=== PATIENT | male | born 1965 | race Caucasian/White ===

== ENCOUNTER 2016-06-16 06:40 | Day surgery (SDC) | payer MEDICARE, MEDICAID ==
[2016-06-16] MEDS ORDERED: Lactated Ringers 1,000 ML IV SCH (06:45)
[2016-06-16] MEDS ORDERED: Propofol 200 MG/20 ML SDV IV ONE (08:00)
[2016-06-16] MEDS ORDERED: Lidocaine 2% 100 MG/5 ML Syringe IVPUSH ONE (08:00)
[2016-06-16] MEDS ORDERED: Midazolam 1 MG/ML 2 ML SDV IV ONE (08:00)
--- NOTE | 2016-06-16 08:23 | PCM.OPNOTE ---
- General Post-Op/Procedure Note Date of Surgery/Procedure: 06/16/16 Operative Procedure(s): c scope Findings: incomplete prep Pre Op Diagnosis: colon cancer screening Post-Op Diagnosis: Same Anesthesia Technique: MAC Primary Surgeon: Williams Merlos Anesthesia Provider: Ness Kendrick Complications: incomplete prep Condition: Good Free Text/Narrative:: see dictation
[2016-06-16 08:45] VITALS: BP 102/54
--- NOTE | 2016-06-16 11:25 | OR ---
DATE OF OPERATION: 06/16/2016 SURGEON: Wililams Merlos MD PROCEDURE PERFORMED: Colonoscopy. PREOPERATIVE DIAGNOSIS: Colon cancer screening. POSTOPERATIVE DIAGNOSIS: Incomplete prep. INDICATIONS FOR PROCEDURE: This is a 51-year-old white male, who is referred for screening colonoscopy. He was offered and accepted the same. DESCRIPTION OF OPERATION: After an excellent IV sedation was administered, digital rectal exam was performed. No marked abnormality was noted. The flexible colonoscope was inserted. The scope was carefully advanced up to about the distal transverse colon. On reaching the descending colon, we began to encounter liquid stool. This got progressively worse as we advanced the scope. It became readily apparent that we were not going to be able to get an adequate exam given the patient's current prep. The scope was withdrawn, and the air was aspirated. The patient will be rescheduled at a later date. /[id number] /MOONL
== END 2016-06-16 10:00 | disposition home or self-care (01) ==
LOC: FB.SDS 06:40
PROVIDERS: ATTEND Surgery
PROC: 0DJD8ZZ Inspection of Lower Intestinal Tract, Via Natural or Artificial Opening Endoscopic (ICD-10-PCS; principal; 2016-06-16)
DX: Z12.11 Encounter for screening for malignant neoplasm of colon (principal); E11.319 Type 2 diabetes mellitus with unspecified diabetic retinopathy without macular edema; E66.01 Morbid (severe) obesity due to excess calories; I10 Essential (primary) hypertension; Z72.0 Tobacco use
CPT/HCPCS: 00902; 45378; 82962; J2250; J2704; J7120

== ENCOUNTER 2016-06-17 08:33 | Day surgery (SDC) | payer MEDICARE, MEDICAID ==
[2016-06-17] MEDS ORDERED: Lactated Ringers 1,000 ML IV SCH (09:15)
[2016-06-17] MEDS ORDERED: Midazolam 1 MG/ML 2 ML SDV IV ONE (10:40)
[2016-06-17] MEDS ORDERED: Propofol 200 MG/20 ML SDV IV ONE (10:40)
[2016-06-17] MEDS ORDERED: Lidocaine 2% 100 MG/5 ML Syringe IVPUSH ONE (10:40)
--- NOTE | 2016-06-17 11:06 | PCM.OPNOTE ---
- General Post-Op/Procedure Note Date of Surgery/Procedure: 06/17/16 Operative Procedure(s): c scope Findings: normal colon Pre Op Diagnosis: colon cancer screening Post-Op Diagnosis: nl scope Anesthesia Technique: MAC Primary Surgeon: Williams Merlos Anesthesia Provider: Ness Kendrick Pathology: none Complications: None Condition: Good Free Text/Narrative:: see dictation
--- NOTE | 2016-06-17 12:14 | OR ---
DATE OF OPERATION: 06/17/2016 SURGEON: Williams Merlos MD PROCEDURE PERFORMED: Colonoscopy. PREOPERATIVE DIAGNOSIS: Need for screening colonoscope. POSTOPERATIVE DIAGNOSIS: Normal colon. INDICATIONS FOR PROCEDURE: This is a 51-year-old white male, presents for his initial screening C-scope. He was offered and accepted same. DESCRIPTION OF OPERATION: After an excellent IV sedation was administered, digital rectal exam was performed. No marked abnormality was noted. The flexible colonoscope was inserted and advanced to the cecum without difficulty. The following findings were noted: Ascending colon, unremarkable. Transverse colon, unremarkable. Descending colon, unremarkable. Sigmoid and rectum unremarkable. Colon was deflated as the scope was removed. The patient tolerated the procedure well and was taken to recovery room in good condition. /[id number] SHAHAB/HAYLIE
[2016-06-17 12:50] VITALS: BP 164/87
== END 2016-06-17 12:19 | disposition home or self-care (01) ==
LOC: FB.SDS 08:33
PROVIDERS: ATTEND Surgery
PROC: 0DJD8ZZ Inspection of Lower Intestinal Tract, Via Natural or Artificial Opening Endoscopic (ICD-10-PCS; principal; 2016-06-17)
DX: Z12.11 Encounter for screening for malignant neoplasm of colon (principal); E11.3293 Type 2 diabetes mellitus with mild nonproliferative diabetic retinopathy without macular edema, bilateral; I10 Essential (primary) hypertension; F17.200 Nicotine dependence, unspecified, uncomplicated; Z89.519 Acquired absence of unspecified leg below knee
CPT/HCPCS: 00902; 45378; J7120; 82962; J2250; J2704

== ENCOUNTER 2018-11-16 23:10 | Observation (INO) | payer MEDICARE, MEDICAID ==
[2018-11-16] MEDS ORDERED: Sodium Chloride 0.9% 10 ML Syringe FLUSH PRN (23:58)
--- NOTE | 2018-11-17 00:07 | EDM.PDOC ---
ED HPI GENERAL MEDICAL PROBLEM - General Chief Complaint: General Stated Complaint: LIGHTHEADED, DIZZY Time Seen by Provider: 11/16/18 23:40 Source of Information: Reports: Patient, EMS, EMS Notes Reviewed History Limitations: Reports: No Limitations - History of Present Illness INITIAL COMMENTS - FREE TEXT/NARRATIVE: Saúl comes into [facility] ED by EMS with sxs of dizziness i.e. lt headiness, weakness, dyspnea and malaise. EMS personnel reported BPs 80's/40's with VR 990- 100's. He had dialysis at [facility] on Thursday and felt fine when homebound. He reportedly mowed the lawn without difficulty, in spite of R BKA. This afternoon, sxs developed and seems to have progressed. He denies chest pain, but does feel SOB which improves with sitting up. A phone call from the Dialysis Center today noted Hgb 6.1 gm %, compared to 7.4 gm % last week at PCP office. He does not endorse any hemetemesis, hematuria or hematochezia. He is normotensive on admission to the ED, Hgb 6.1 gms % unchanged. He will be admitted to Observation for transfusions tonight. - Related Data Allergies Allergy/AdvReac Type Severity Reaction Status Date / Time amoxicillin [From Augmentin] Allergy Rash Verified 11/16/18 23:34 clavulanic acid Allergy Rash Verified 11/16/18 23:34 [From Augmentin] Sulfa (Sulfonamide Allergy Rash Verified 11/16/18 23:34 Antibiotics) Home Meds: Home Meds Albuterol Sulfate [Proair Hfa] 1 - 2 puff IH Q6H 06/13/16 [History] Ascorbate Calcium [Vitamin C] 500 mg PO DAILY 06/13/16 [History] Budesonide/Formoterol Fumarate [Symbicort 160-4.5 Mcg Inhaler] 2 puff IH BID PRN 06/13/16 [History] Carbidopa/Levodopa [Carbidopa-Levodopa 25-250] 1 each PO BEDTIME PRN 06/13/16 [ History] Carvedilol [Coreg] 6.25 mg PO Q12H 06/13/16 [History] Cyanocobalamin (Vitamin B-12) [Vitamin B-12] 250 mcg PO DAILY 06/13/16 [History] Ergocalciferol (Vitamin D2) [Vitamin D] 1,000 unit PO BID 06/13/16 [History] Ferrous Sulfate 324 mg PO TID 06/13/16 [History] Furosemide [Lasix] 40 mg PO BID 06/13/16 [History] Insulin Glarg,Human.Rec.Analog [Lantus Solostar] 20 unit SQ BID 06/13/16 [ History] Multivitamin with Minerals [Multiple Vitamin] 1 tab PO DAILY 06/13/16 [History] Pumpkin Seed Oil/Saw Sumerco [Saw Sumerco 160 mg Softgel] 160 mg PO BID [History] amLODIPine [Norvasc] 5 mg PO DAILY 06/13/16 [History] metFORMIN [Glucophage] 1,000 mg PO BIDMEALS 06/13/16 [History] Past Medical History HEENT History: Reports: Cataract, Other (See Below) Other HEENT History: DIABETIC RETINOPATHY, BOTH EYES;. DIABETIC OPTIC PAPILLOPATHY Cardiovascular History: Reports: Hypertension, Other (See Below) Other Cardiovascular History: EDEMA Respiratory History: Reports: Asthma, COPD Genitourinary History: Reports: Acute Renal Failure PHONE TECHNICIAN History: Reports: None Musculoskeletal History: Reports: Amputation, Other (See Below) Other Musculoskeletal History: OSTEOMYELITIS, RIGHT LEG Neurological History: Reports: Neuropathy, Diabetic, Other (See Below) Other Neuro History: RESTLESS LEG SYNDROME Psychiatric History: Reports: Anxiety, Depression Endocrine/Metabolic History: Reports: Diabetes, Type II, Obesity/BMI 30+, Vitamin D Deficiency Hematologic History: Reports: Anemia, Blood Transfusion(s), Other (See Below) Other Hematologic History: THROMBOCYTOPENIA Dermatologic History: Reports: Other (See Below) Other Dermatologic History: HX ULCER - Infectious Disease History Infectious Disease History: Reports: Chicken Pox - Past Surgical History GI Surgical History: Reports: Colonoscopy Musculoskeletal Surgical History: Reports: Amputation Social & Family History - Caffeine Use Caffeine Use: Reports: Soda ED ROS GENERAL - Review of Systems Review Of Systems: See Below Constitutional: Reports: Malaise, Weakness, Fatigue, Decreased Appetite, Weight Loss HEENT: Reports: No Symptoms Respiratory: Reports: Shortness of Breath Cardiovascular: Reports: Lightheadedness, Orthopnea Endocrine: Reports: Fatigue GI/Abdominal: Reports: No Symptoms : Reports: No Symptoms Musculoskeletal: Reports: No Symptoms Skin: Reports: No Symptoms Neurological: Reports: Dizziness, Pre-Existing Deficit, Weakness Psychiatric: Reports: No Symptoms Hematologic/Lymphatic: Reports: Anemia Immunologic: Reports: No Symptoms ED EXAM, GENERAL - Physical Exam Exam: See Below Exam Limited By: No Limitations General Appearance: Alert, WD/WN, Anxious, Mild Distress, Obese Eye Exam: Bilateral Eye: EOMI, Normal Inspection, PERRL Ears: Normal External Exam Nose: Normal Inspection Throat/Mouth: Normal Inspection, Normal Lips, Normal Oropharynx, Normal Voice, No Airway Compromise Head: Normocephalic Neck: Normal Inspection, Supple, Non-Tender Respiratory/Chest: Lungs Clear, Chest Non-Tender, Prolonged Expiration Cardiovascular: Regular Rate, Rhythm, Other (edema L foot) GI/Abdominal: Normal Bowel Sounds, Soft, Non-Tender, No Organomegaly, No Distention, No Mass (Male) Exam: Deferred Rectal (Males) Exam: Deferred Back Exam: Normal Inspection Extremities: Other (R BKA; ) Neurological: Alert, Oriented, Normal Cognition, Sensory/Motor Deficit Psychiatric: Normal Affect, Anxious Skin Exam: Warm, Dry, Other (neurotrophic ulceration L foot; minor ulceration L buttock) Lymphatic: No Adenopathy Course - Vital Signs Text/Narrative:: Follow up Hgb 6.1 gm %, and he will be admitted to Observation for blood transfusions tonight. Hospitalist to see in the am. Last Recorded V/S: Last Vital Signs Temp 36.6 C 11/16/18 23:10 Pulse 106 H 11/16/18 23:10 Resp 18 11/16/18 23:10 BP 133/73 11/16/18 23:10 Pulse Ox 98 11/16/18 23:10 - Orders/Labs/Meds Orders: Active Orders 24 hr Category Date Time Status Patient Status Manage Transfer [TRANSFER] Routine ADT 11/17/18 01:16 Active Patient Status [ADT] Routine ADT 11/17/18 01:19 Active Bedrest Bedside Commode [RC] ASDIRECTED Care 11/17/18 01:19 Active Blood Glucose Check, Bedside [RC] TIDMEALS Care 11/17/18 01:19 Active EKG Documentation Completion [RC] ASDIRECTED Care 11/17/18 00:07 Active Height and Weight [RC] DAILY Care 11/17/18 01:19 Active Intake and Output [RC] QSHIFT Care 11/17/18 01:21 Active Oxygen Therapy [RC] PRN Care 11/17/18 01:19 Active VTE/DVT Education [RC] Per Unit Routine Care 11/17/18 01:19 Active Vital Signs [RC] Q4H Care 11/17/18 01:19 Active Consistent Carbohydrate Diet [DIET] Diet 11/17/18 Breakfast Ordered RED BLOOD CELLS LP [BBK] Stat Lab 11/16/18 23:58 Received TROPONIN I [CHEM] Stat Lab 11/17/18 00:54 Received TYPE AND SCREEN [BBK] Stat Lab 11/16/18 23:58 Received Sodium Chloride 0.9% [Normal Saline] 1,000 ml Med 11/16/18 23:45 Active IV ASDIRECTED Sodium Chloride 0.9% [Normal Saline] 250 ml Med 11/16/18 23:45 Active IV ASDIRECTED Sodium Chloride 0.9% [Saline Flush] Med 11/16/18 23:58 Active 10 ml FLUSH ASDIRECTED PRN Peripheral IV Insertion Adult [OM.PC] Routine Oth 11/16/18 23:58 Ordered Transfuse Red Blood Cells [COMM] Urgent Oth 11/16/18 23:58 Ordered Resuscitation Status Routine Resus Stat 11/17/18 01:19 Ordered EKG 12 Lead [EK] Routine Ther 11/17/18 00:07 Ordered Medication Orders Sodium Chloride (Normal Saline) 1,000 mls @ 400 mls/hr IV ASDIRECTED MEGHANA Stop: 11/18/18 02:14 Sodium Chloride (Normal Saline) 250 mls @ 100 mls/hr IV ASDIRECTED MEGHANA Sodium Chloride (Saline Flush) 10 ml FLUSH ASDIRECTED PRN PRN Reason: Keep Vein Open Labs: Laboratory Tests 11/17/18 11/17/18 Range/Units 00:54 00:54 WBC 12.1 H (4.5-12.0) X10-3/uL RBC 2.50 L (4.30-5.75) x10(6)uL Hgb 6.1 L* (13.5-17.8) g/dL Hct 18.8 L* D (30.0-51.3) % MCV 75.1 L (80-96) fL MCH 24.6 L (27.7-33.6) pg MCHC 32.7 (32.2-35.4) g/dL RDW 21.9 H (11.5-15.5) % Plt Count 257 (125-369) X10(3)uL MPV 7.3 L (7.4-10.4) fL Neut % (Auto) 72.0 (46-82) % Lymph % (Auto) 18.4 (13-37) % Carter % (Auto) 8.5 (4-12) % Eos % (Auto) 1 (1.0-5.0) % Baso % (Auto) 0 (0-2) % Neut # (Auto) 8.8 H (1.6-8.3) # Lymph # (Auto) 2.2 (0.6-5.0) # Carter # (Auto) 1.0 (0.0-1.3) # Eos # (Auto) 0.1 (0.0-0.8) # Baso # (Auto) 0.0 (0.0-0.2) # Sodium 136 (135-145) mmol/L Potassium 3.4 L (3.5-5.3) mmol/L Chloride 99 L (100-110) mmol/L Carbon Dioxide 30 (21-32) mmol/L BUN 17 (7-18) mg/dL Creatinine 3.7 H* (0.70-1.30) mg/dL Est Cr Clr Drug Dosing TNP Estimated GFR (MDRD) 17 L (>60) BUN/Creatinine Ratio 4.6 L (9-20) Glucose 172 H (80-116) mg/dL Calcium 8.4 L (8.6-10.2) mg/dL Total Bilirubin 0.6 (0.1-1.3) mg/dL AST 19 (5-25) IU/L ALT 7 L (12-36) U/L Alkaline Phosphatase 174 H (56-112) IU/L Total Protein 5.9 L (6.0-8.0) g/dL Albumin 2.1 L (3.5-5.2) g/dL Globulin 3.8 g/dL Albumin/Globulin Ratio 0.6 Meds: Medications Generic Name Dose Route Start Last Admin Trade Name Freq PRN Reason Stop Dose Admin Sodium Chloride 1,000 mls @ 400 mls/hr 11/16/18 23:45 Normal Saline IV 08/15/19 02:14 ASDIRECTED MEGHANA Sodium Chloride 250 mls @ 100 mls/hr 11/16/18 23:45 Normal Saline IV ASDIRECTED MEGHANA Sodium Chloride 10 ml 11/16/18 23:58 Saline Flush FLUSH ASDIRECTED PRN Keep Vein Open Departure - Departure Time of Disposition: 01:15 Disposition: Refer to Observation Condition: Poor Clinical Impression: Anemia associated with chronic renal failure - Discharge Information *PRESCRIPTION DRUG MONITORING PROGRAM REVIEWED*: Not Applicable *COPY OF PRESCRIPTION DRUG MONITORING REPORT IN PATIENT AVANI: Not Applicable Referrals: Bret Mccoy MD [Primary Care Provider] - Forms: ED Department Discharge - Problem List & Annotations (1) Anemia associated with chronic renal failure SNOMED Code(s): 52992418 Code(s): N18.9 - CHRONIC KIDNEY DISEASE, UNSPECIFIED; D63.1 - ANEMIA IN CHRONIC KIDNEY DISEASE Status: Acute Current Visit: Yes Annotation/Comment :: Admit to Observation and transfuse tonight. - Problem List Review Problem List Initiated/Reviewed/Updated: Yes - My Orders Last 24 Hours: My Active Orders 11/16/18 23:45 Sodium Chloride 0.9% [Normal Saline] 1,000 ml IV ASDIRECTED Sodium Chloride 0.9% [Normal Saline] 250 ml IV ASDIRECTED 11/16/18 23:58 RED BLOOD CELLS LP [BBK] Stat TYPE AND SCREEN [BBK] Stat Sodium Chloride 0.9% [Saline Flush] 10 ml FLUSH ASDIRECTED PRN Peripheral IV Insertion Adult [OM.PC] Routine Transfuse Red Blood Cells [COMM] Urgent 11/17/18 00:07 EKG Documentation Completion [RC] ASDIRECTED EKG 12 Lead [EK] Routine 11/17/18 00:54 TROPONIN I [CHEM] Stat 11/17/18 01:16 Patient Status Manage Transfer [TRANSFER] Routine 11/17/18 01:19 Patient Status [ADT] Routine Bedrest Bedside Commode [RC] ASDIRECTED Blood Glucose Check, Bedside [RC] TIDMEALS Height and Weight [RC] DAILY Oxygen Therapy [RC] PRN VTE/DVT Education [RC] Per Unit Routine Vital Signs [RC] Q4H Resuscitation Status Routine 11/17/18 01:21 Intake and Output [RC] QSHIFT 11/17/18 Breakfast Consistent Carbohydrate Diet [DIET] - Assessment/Plan Last 24 Hours: My Active Orders 11/16/18 23:45 Sodium Chloride 0.9% [Normal Saline] 1,000 ml IV ASDIRECTED Sodium Chloride 0.9% [Normal Saline] 250 ml IV ASDIRECTED 11/16/18 23:58 RED BLOOD CELLS LP [BBK] Stat TYPE AND SCREEN [BBK] Stat Sodium Chloride 0.9% [Saline Flush] 10 ml FLUSH ASDIRECTED PRN Peripheral IV Insertion Adult [OM.PC] Routine Transfuse Red Blood Cells [COMM] Urgent 11/17/18 00:07 EKG Documentation Completion [RC] ASDIRECTED EKG 12 Lead [EK] Routine 11/17/18 00:54 TROPONIN I [CHEM] Stat 11/17/18 01:16 Patient Status Manage Transfer [TRANSFER] Routine 11/17/18 01:19 Patient Status [ADT] Routine Bedrest Bedside Commode [RC] ASDIRECTED Blood Glucose Check, Bedside [RC] TIDMEALS Height and Weight [RC] DAILY Oxygen Therapy [RC] PRN VTE/DVT Education [RC] Per Unit Routine Vital Signs [RC] Q4H Resuscitation Status Routine 11/17/18 01:21 Intake and Output [RC] QSHIFT 11/17/18 Breakfast Consistent Carbohydrate Diet [DIET] Plan: Follow up with hospitalist in the am.
[2018-11-17] MEDS ORDERED: Albuterol 8 GM Inhaler INH PRN (01:50)
[2018-11-17] MEDS: Sodium Chloride 0.9% 1,000 ML IV SCH ×2 (02:33→09:33)
[2018-11-17] MEDS: Sodium Chloride 0.9% 250 ML IV SCH ×2 (03:10→05:19)
[2018-11-17] MEDS ORDERED: Heparin Sodium 10 Units/ML 5 ML Syringe FLUSH PRN (04:03)
[2018-11-17] MEDS ORDERED: Carbidopa/Levodopa 25-250 MG Tab PO ONE (04:46)
--- NOTE | 2018-11-17 08:28 | PCM.SN ---
- Free Text/Narrative Note: was called to ER to start IV for blood transfusion and to draw blood for lab.Nurses attemt to do so was unsucessful.Very ill appearring patient who is uncomfortable with SOB and weakness.No veins noted on left arm,attemptted small vein lower arm without success.Dialysis nurse from [facility] requested that we not use central line.Due to patients symptoms,with Dr Cavazos approval, did start 18 jelco in right antecubatal to draw blood and use in case of emergency.We than spoke to a dialysis nurse at [place] who reccommended using central line rather than right arm.
[2018-11-17] MEDS ORDERED: Non-Formulary Medication 1 Each (Budesonide/Formoterol Fumarate [Symbicort 160-4.5 Mcg Inh IH PRN (09:02)
[2018-11-17] MEDS ORDERED: INSULIN DEGLUDEC 30 UNIT SQ PRN (09:02)
[2018-11-17] MEDS ORDERED: Non-Formulary Medication 1 Each (Ferrous Sulfate [Ferrous Sulfate] 324 MG) PO SCH (09:15)
[2018-11-17] MEDS ORDERED: CYANOCOBALAMIN 250 MCG PO SCH (09:15)
--- NOTE | 2018-11-17 13:31 | PCM.DCSUM1 ---
Discharge Summary - Hospital Course HPI Initial Comments: Patient is a 53 yr old male who present to ER yesterday for dizziness, lightheadedness, weakness, dyspnea and malaise. EMS personnel reported BPs 80's/ 40's with HR 90-100's. He had dialysis at [facility] on Thursday and felt fine at that time. He mowed the lawn Thursday without difficulty , in spite of R BKA. His symptoms progressed yesterday afternoon. He denied chest pain, but felt SOB which improves with sitting up when seen in ER. He got a phone call from the Dialysis Center yesterday noted Hgb 6.1 gm %, compared to 7.4 gm % last week at PCP office. He denies hematemesis, hematuria or black or bloody stool. Hgb 6.1 in the ER. He was admitted to Observation for transfusions overnight. Diagnosis: Stroke: No - Discharge Data Discharge Date: 11/17/18 Discharge Disposition: Home, Self-Care 01 Condition: Stable - Discharge Diagnosis/Problem(s) (1) CKD (chronic kidney disease) stage V requiring chronic dialysis SNOMED Code(s): 100965088 ICD Code: N18.6 - END STAGE RENAL DISEASE; Z99.2 - DEPENDENCE ON RENAL DIALYSIS Status: Chronic Current Visit: Yes (2) Anemia associated with chronic renal failure SNOMED Code(s): 43863047 ICD Code: N18.9 - CHRONIC KIDNEY DISEASE, UNSPECIFIED; D63.1 - ANEMIA IN CHRONIC KIDNEY DISEASE Status: Chronic Current Visit: Yes Problem Details : Admit to Observation and transfuse tonight. (3) History of right below knee amputation SNOMED Code(s): 366778201142078, 086870480416584 ICD Code: Z89.511 - ACQUIRED ABSENCE OF RIGHT LEG BELOW KNEE Status: Chronic Current Visit: Yes - Patient Summary/Data Hospital Course: Patient was admitted for transfusion of 2 units of PRBCs. His hemoglobin came up to 8.1, hematocrit to 24.6, complete resolution of his symptoms. Labs sent to Dialysis Center in [place], [place]. Due for Dialysis on Thursday. - Patient Instructions Diet: Diabetic Diet Activity: As Tolerated Driving: May Drive Today Showering/Bathing: May Shower Other/Special Instructions: Follow up with previously scheduled appts tomorrow in [facility]. Follow up with Dialysis center on Thursday. - Discharge Plan *PRESCRIPTION DRUG MONITORING PROGRAM REVIEWED*: No *COPY OF PRESCRIPTION DRUG MONITORING REPORT IN PATIENT AVANI: No Home Medications: Home Meds Albuterol Sulfate [Proair Hfa] 1 - 2 puff IH Q6H 06/13/16 [History] Budesonide/Formoterol Fumarate [Symbicort 160-4.5 Mcg Inhaler] 2 puff IH BID PRN 06/13/16 [History] Carbidopa/Levodopa [Carbidopa-Levodopa 25-250] 1 each PO BEDTIME PRN 06/13/16 [ History] Cyanocobalamin (Vitamin B-12) [Vitamin B-12] 250 mcg PO DAILY 06/13/16 [History] Ferrous Sulfate 324 mg PO BID 06/13/16 [History] .Kidney Pill 1 dose PO ASDIRECTED 11/17/18 [History] Insulin Degludec 30 units SQ DAILY PRN 11/17/18 [Rx] Patient Handouts: Blood Transfusion, Adult, [id number], Smoking Tobacco Information, Adult, Preventing Pressure Injuries, Fall Prevention in Hospitals, Adult, Venous Thromboembolism Prevention Forms: ED Department Discharge Referrals: Rolando Pineda MD [Ordering Only Provider] - Bret Mccoy MD [Primary Care Provider] - Scott Rai MD [Consulting Physician] - - Discharge Summary/Plan Comment DC Time >30 min.: Yes - Patient Data Vitals - Most Recent: Last Vital Signs Temp 36.1 C 11/17/18 08:47 Pulse 78 11/17/18 08:47 Resp 15 11/17/18 08:47 BP 106/57 L 11/17/18 08:47 Pulse Ox 98 11/17/18 08:47 Weight - Most Recent: 127.459 kg I&O - Last 24 hours: Intake & Output 11/16/18 11/17/18 11/17/18 22:59 06:59 14:59 Intake Total 757 283 Output Total 0 Balance 757 283 Lab Results - Last 24 hrs: Laboratory Results - last 24 hr 11/17/18 11/17/18 11/17/18 Range/Units 00:54 00:54 00:54 WBC 12.1 H (4.5-12.0) X10-3/uL RBC 2.50 L (4.30-5.75) x10(6)uL Hgb 6.1 L* (13.5-17.8) g/dL Hct 18.8 L* D (30.0-51.3) % MCV 75.1 L (80-96) fL MCH 24.6 L (27.7-33.6) pg MCHC 32.7 (32.2-35.4) g/dL RDW 21.9 H (11.5-15.5) % Plt Count 257 (125-369) X10(3)uL MPV 7.3 L (7.4-10.4) fL Neut % (Auto) 72.0 (46-82) % Lymph % (Auto) 18.4 (13-37) % Crowley % (Auto) 8.5 (4-12) % Eos % (Auto) 1 (1.0-5.0) % Baso % (Auto) 0 (0-2) % Neut # (Auto) 8.8 H (1.6-8.3) # Lymph # (Auto) 2.2 (0.6-5.0) # Crowley # (Auto) 1.0 (0.0-1.3) # Eos # (Auto) 0.1 (0.0-0.8) # Baso # (Auto) 0.0 (0.0-0.2) # Sodium 136 (135-145) mmol/L Potassium 3.4 L (3.5-5.3) mmol/L Chloride 99 L (100-110) mmol/L Carbon Dioxide 30 (21-32) mmol/L BUN 17 (7-18) mg/dL Creatinine 3.7 H* (0.70-1.30) mg/dL Est Cr Clr Drug Dosing TNP Estimated GFR (MDRD) 17 L (>60) BUN/Creatinine Ratio 4.6 L (9-20) Glucose 172 H (80-116) mg/dL POC Glucose (80-116) mg/dL Calcium 8.4 L (8.6-10.2) mg/dL Total Bilirubin 0.6 (0.1-1.3) mg/dL AST 19 (5-25) IU/L ALT 7 L (12-36) U/L Alkaline Phosphatase 174 H (56-112) IU/L Troponin I (<0.017-0.056) ng/mL Total Protein 5.9 L (6.0-8.0) g/dL Albumin 2.1 L (3.5-5.2) g/dL Globulin 3.8 g/dL Albumin/Globulin Ratio 0.6 Blood Type A NEGATIVE Gel Antibody Screen Negative Crossmatch See Detail 11/17/18 11/17/18 11/17/18 Range/Units 00:54 06:57 11:58 WBC (4.5-12.0) X10-3/uL RBC (4.30-5.75) x10(6)uL Hgb (13.5-17.8) g/dL Hct (30.0-51.3) % MCV (80-96) fL MCH (27.7-33.6) pg MCHC (32.2-35.4) g/dL RDW (11.5-15.5) % Plt Count (125-369) X10(3)uL MPV (7.4-10.4) fL Neut % (Auto) (46-82) % Lymph % (Auto) (13-37) % Crowley % (Auto) (4-12) % Eos % (Auto) (1.0-5.0) % Baso % (Auto) (0-2) % Neut # (Auto) (1.6-8.3) # Lymph # (Auto) (0.6-5.0) # Crowley # (Auto) (0.0-1.3) # Eos # (Auto) (0.0-0.8) # Baso # (Auto) (0.0-0.2) # Sodium (135-145) mmol/L Potassium (3.5-5.3) mmol/L Chloride (100-110) mmol/L Carbon Dioxide (21-32) mmol/L BUN (7-18) mg/dL Creatinine (0.70-1.30) mg/dL Est Cr Clr Drug Dosing Estimated GFR (MDRD) (>60) BUN/Creatinine Ratio (9-20) Glucose (80-116) mg/dL POC Glucose 163 H 165 H (80-116) mg/dL Calcium (8.6-10.2) mg/dL Total Bilirubin (0.1-1.3) mg/dL AST (5-25) IU/L ALT (12-36) U/L Alkaline Phosphatase (56-112) IU/L Troponin I 0.037 (<0.017-0.056) ng/mL Total Protein (6.0-8.0) g/dL Albumin (3.5-5.2) g/dL Globulin g/dL Albumin/Globulin Ratio Blood Type Gel Antibody Screen Crossmatch 11/17/18 Range/Units 12:10 WBC (4.5-12.0) X10-3/uL RBC (4.30-5.75) x10(6)uL Hgb 8.1 L (13.5-17.8) g/dL Hct 24.6 L (30.0-51.3) % MCV (80-96) fL MCH (27.7-33.6) pg MCHC (32.2-35.4) g/dL RDW (11.5-15.5) % Plt Count (125-369) X10(3)uL MPV (7.4-10.4) fL Neut % (Auto) (46-82) % Lymph % (Auto) (13-37) % Crowley % (Auto) (4-12) % Eos % (Auto) (1.0-5.0) % Baso % (Auto) (0-2) % Neut # (Auto) (1.6-8.3) # Lymph # (Auto) (0.6-5.0) # Crowley # (Auto) (0.0-1.3) # Eos # (Auto) (0.0-0.8) # Baso # (Auto) (0.0-0.2) # Sodium (135-145) mmol/L Potassium (3.5-5.3) mmol/L Chloride (100-110) mmol/L Carbon Dioxide (21-32) mmol/L BUN (7-18) mg/dL Creatinine (0.70-1.30) mg/dL Est Cr Clr Drug Dosing Estimated GFR (MDRD) (>60) BUN/Creatinine Ratio (9-20) Glucose (80-116) mg/dL POC Glucose (80-116) mg/dL Calcium (8.6-10.2) mg/dL Total Bilirubin (0.1-1.3) mg/dL AST (5-25) IU/L ALT (12-36) U/L Alkaline Phosphatase (56-112) IU/L Troponin I (<0.017-0.056) ng/mL Total Protein (6.0-8.0) g/dL Albumin (3.5-5.2) g/dL Globulin g/dL Albumin/Globulin Ratio Blood Type Gel Antibody Screen Crossmatch Med Orders - Current: Current Medications Albuterol (Ventolin Hfa) 0 gm INH Q6H PRN PRN Reason: Shortness of Breath Last Admin: 11/17/18 04:07 Dose: 1 inhaler Heparin Sodium (Porcine) (Heparin Lock Flush 10 Units/Ml) 50 unit FLUSH ASDIRECTED PRN PRN Reason: Keep Vein Open Last Admin: 11/17/18 12:26 Dose: 50 unit Sodium Chloride (Normal Saline) 1,000 mls @ 400 mls/hr IV ASDIRECTED MEGHANA Stop: 11/18/18 02:14 Last Admin: 11/17/18 09:33 Dose: 400 mls/hr Sodium Chloride (Normal Saline) 250 mls @ 100 mls/hr IV ASDIRECTED MEGHANA Last Admin: 11/17/18 05:19 Dose: 100 mls/hr Non-Formulary Medication (Budesonide/Formoterol Fumarate [Symbicort 160-4.5 Mcg Inhaler]) 2 puff IH BID PRN PRN Reason: Shortness of Breath Non-Formulary Medication (Cyanocobalamin (Vitamin B-12) [Vitamin B-12]) 250 mcg PO DAILY REPLACED BY [facility] Non-Formulary Medication (Ferrous Sulfate [Ferrous Sulfate]) 324 mg PO BID REPLACED BY [facility] Non-Formulary Medication 1 Each ( Insulin Degludec 30 Units) *Ptom 30 units SQ DAILY PRN PRN Reason: elevated blood sugar Sodium Chloride (Saline Flush) 10 ml FLUSH ASDIRECTED PRN PRN Reason: Keep Vein Open Last Admin: 11/17/18 12:26 Dose: 10 ml Discontinued Medications Carbidopa/Levodopa (Sinemet 25-250 Mg) 1 tab PO ONETIME ONE Stop: 11/17/18 04:47 Last Admin: 11/17/18 05:05 Dose: 1 tab - Exam General: Reports: Alert, Oriented, Cooperative, No Acute Distress Lungs: Reports: Clear to Auscultation, Normal Respiratory Effort Cardiovascular: Reports: Regular Rate, Regular Rhythm GI/Abdominal Exam: Normal Bowel Sounds, Soft, Non-Tender, No Distention Skin: Reports: Warm, Dry, Intact
[2018-11-17 14:27] VITALS: BP 110/62; PULSE 75
--- NOTE | 2018-11-23 13:20 | PCM.HP.2 ---
H&P History of Present Illness - General Date of Service: 11/17/18 Admit Problem/Dx: Admission Diagnosis/Problem Admission Diagnosis/Problem Anemia due to chronic kidney disease Source of Information: Patient, EMS Notes Reviewed - History of Present Illness Initial Comments - Free Text/Narative: Patient is a 53 yr old male who present to ER yesterday for dizziness, lightheadedness, weakness, dyspnea and malaise. EMS personnel reported BPs 80's/ 40's with HR 90-100's. He had dialysis at [facility] on Thursday and felt fine at that time. He mowed the lawn Thursday without difficulty , in spite of R BKA. His symptoms progressed yesterday afternoon. He denied chest pain, but felt SOB which improves with sitting up when seen in ER. He got a phone call from the Dialysis Center yesterday noted Hgb 6.1 gm %, compared to 7.4 gm % last week at PCP office. He denies hematemesis, hematuria or black or bloody stool. Hgb 6.1 in the ER. He was admitted to Observation for transfusions overnight. - Related Data Allergies/Adverse Reactions: Allergies Allergy/AdvReac Type Severity Reaction Status Date / Time amoxicillin [From Augmentin] Allergy Rash Verified 11/16/18 23:34 clavulanic acid Allergy Rash Verified 11/16/18 23:34 [From Augmentin] Sulfa (Sulfonamide Allergy Rash Verified 11/16/18 23:34 Antibiotics) Home Medications: Home Meds Albuterol Sulfate [Proair Hfa] 1 - 2 puff IH Q6H 06/13/16 [History] Budesonide/Formoterol Fumarate [Symbicort 160-4.5 Mcg Inhaler] 2 puff IH BID PRN 06/13/16 [History] Carbidopa/Levodopa [Carbidopa-Levodopa 25-250] 1 each PO BEDTIME PRN 06/13/16 [ History] Cyanocobalamin (Vitamin B-12) [Vitamin B-12] 250 mcg PO DAILY 06/13/16 [History] Ferrous Sulfate 324 mg PO BID 06/13/16 [History] .Kidney Pill 1 dose PO ASDIRECTED 11/17/18 [History] Insulin Degludec [Tresiba Flextouch U-200] 30 units SQ DAILY PRN 11/17/18 [ History] Past Medical History HEENT History: Reports: Cataract, Other (See Below) Other HEENT History: DIABETIC RETINOPATHY, BOTH EYES;. DIABETIC OPTIC PAPILLOPATHY Cardiovascular History: Reports: Hypertension, Other (See Below) Other Cardiovascular History: EDEMA Respiratory History: Reports: Asthma, COPD Other Respiratory History: Takes inhalers prn. Genitourinary History: Reports: Acute Renal Failure Other Genitourinary History: Dialysis patient---[facility]. Presently has a Yepez Central Line in place awaiting maturity of fistula to right wrist area. 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 Hematologic History: Reports: Anemia, Blood Transfusion(s), Other (See Below) Other Hematologic History: THROMBOCYTOPENIA Dermatologic History: Reports: Other (See Below) Other Dermatologic History: HX ULCER - Infectious Disease History Infectious Disease History: Reports: Chicken Pox - Past Surgical History GI Surgical History: Reports: Colonoscopy Musculoskeletal Surgical History: Reports: Amputation Social & Family History - Tobacco Use Smoking Status *Q: Current Every Day Smoker Years of Tobacco use: 30 Packs/Tins Daily: 0.5 - Caffeine Use Caffeine Use: Reports: Soda - Recreational Drug Use Recreational Drug Use: No H&P Review of Systems - Review of Systems: Review Of Systems: ROS reveals no pertinent complaints other than HPI. Exam - Exam Exam: See Below - Vital Signs Vital Signs: Last Vital Signs Temp 36.1 C 11/17/18 08:47 Pulse 78 11/17/18 08:47 Resp 15 11/17/18 08:47 BP 106/57 L 11/17/18 08:47 Pulse Ox 98 11/17/18 08:47 Weight: 127.459 kg - Exam General: Alert, Oriented, Cooperative Lungs: Clear to Auscultation, Normal Respiratory Effort Cardiovascular: Regular Rate, Regular Rhythm GI/Abdominal Exam: Normal Bowel Sounds, Soft, Non-Tender, No Distention Extremities: Other (Rt BKA, Left lower leg wrapped with coband with stocking in place.) - Patient Data Lab Results Last 24 hrs: Laboratory Results - last 24 hr 11/17/18 11/17/18 11/17/18 Range/Units 00:54 00:54 00:54 WBC 12.1 H (4.5-12.0) X10-3/uL RBC 2.50 L (4.30-5.75) x10(6)uL Hgb 6.1 L* (13.5-17.8) g/dL Hct 18.8 L* D (30.0-51.3) % MCV 75.1 L (80-96) fL MCH 24.6 L (27.7-33.6) pg MCHC 32.7 (32.2-35.4) g/dL RDW 21.9 H (11.5-15.5) % Plt Count 257 (125-369) X10(3)uL MPV 7.3 L (7.4-10.4) fL Neut % (Auto) 72.0 (46-82) % Lymph % (Auto) 18.4 (13-37) % [place] % (Auto) 8.5 (4-12) % Eos % (Auto) 1 (1.0-5.0) % Baso % (Auto) 0 (0-2) % Neut # (Auto) 8.8 H (1.6-8.3) # Lymph # (Auto) 2.2 (0.6-5.0) # [place] # (Auto) 1.0 (0.0-1.3) # Eos # (Auto) 0.1 (0.0-0.8) # Baso # (Auto) 0.0 (0.0-0.2) # Sodium 136 (135-145) mmol/L Potassium 3.4 L (3.5-5.3) mmol/L Chloride 99 L (100-110) mmol/L Carbon Dioxide 30 (21-32) mmol/L BUN 17 (7-18) mg/dL Creatinine 3.7 H* (0.70-1.30) mg/dL Est Cr Clr Drug Dosing TNP Estimated GFR (MDRD) 17 L (>60) BUN/Creatinine Ratio 4.6 L (9-20) Glucose 172 H (80-116) mg/dL POC Glucose (80-116) mg/dL Calcium 8.4 L (8.6-10.2) mg/dL Total Bilirubin 0.6 (0.1-1.3) mg/dL AST 19 (5-25) IU/L ALT 7 L (12-36) U/L Alkaline Phosphatase 174 H (56-112) IU/L Troponin I (<0.017-0.056) ng/mL Total Protein 5.9 L (6.0-8.0) g/dL Albumin 2.1 L (3.5-5.2) g/dL Globulin 3.8 g/dL Albumin/Globulin Ratio 0.6 Blood Type A NEGATIVE Gel Antibody Screen Negative Crossmatch See Detail 11/17/18 11/17/18 Range/Units 00:54 06:57 WBC (4.5-12.0) X10-3/uL RBC (4.30-5.75) x10(6)uL Hgb (13.5-17.8) g/dL Hct (30.0-51.3) % MCV (80-96) fL MCH (27.7-33.6) pg MCHC (32.2-35.4) g/dL RDW (11.5-15.5) % Plt Count (125-369) X10(3)uL MPV (7.4-10.4) fL Neut % (Auto) (46-82) % Lymph % (Auto) (13-37) % [place] % (Auto) (4-12) % Eos % (Auto) (1.0-5.0) % Baso % (Auto) (0-2) % Neut # (Auto) (1.6-8.3) # Lymph # (Auto) (0.6-5.0) # Am[place] # (Auto) (0.0-1.3) # Eos # (Auto) (0.0-0.8) # Baso # (Auto) (0.0-0.2) # Sodium (135-145) mmol/L Potassium (3.5-5.3) mmol/L Chloride (100-110) mmol/L Carbon Dioxide (21-32) mmol/L BUN (7-18) mg/dL Creatinine (0.70-1.30) mg/dL Est Cr Clr Drug Dosing Estimated GFR (MDRD) (>60) BUN/Creatinine Ratio (9-20) Glucose (80-116) mg/dL POC Glucose 163 H (80-116) mg/dL Calcium (8.6-10.2) mg/dL Total Bilirubin (0.1-1.3) mg/dL AST (5-25) IU/L ALT (12-36) U/L Alkaline Phosphatase (56-112) IU/L Troponin I 0.037 (<0.017-0.056) ng/mL Total Protein (6.0-8.0) g/dL Albumin (3.5-5.2) g/dL Globulin g/dL Albumin/Globulin Ratio Blood Type Gel Antibody Screen Crossmatch Result Diagrams: 11/17/18 00:54 11/17/18 00:54 - Problem List (1) CKD (chronic kidney disease) stage V requiring chronic dialysis SNOMED Code(s): 605064579 ICD Code: N18.6 - END STAGE RENAL DISEASE; Z99.2 - DEPENDENCE ON RENAL DIALYSIS Status: Acute Current Visit: Yes (2) Anemia associated with chronic renal failure SNOMED Code(s): 40061036 ICD Code: N18.9 - CHRONIC KIDNEY DISEASE, UNSPECIFIED; D63.1 - ANEMIA IN CHRONIC KIDNEY DISEASE Status: Acute Current Visit: Yes Problem Details: Admit to Observation and transfuse tonight. (3) History of right below knee amputation SNOMED Code(s): 737898034068678, 199077892298722 ICD Code: Z89.511 - ACQUIRED ABSENCE OF RIGHT LEG BELOW KNEE Status: Acute Current Visit: Yes Problem List Initiated/Reviewed/Updated: Yes Orders Last 24hrs: Active Orders 24 hr Category Date Time Status Patient Status [ADT] Routine ADT 11/17/18 01:19 Active Bedrest Bedside Commode [RC] ASDIRECTED Care 11/17/18 01:19 Active Blood Glucose Check, Bedside [RC] TIDMEALS Care 11/17/18 01:19 Active Communication Order [RC] 00,08,16 Care 11/17/18 03:24 Active EKG Documentation Completion [RC] ASDIRECTED Care 11/17/18 00:07 Active Height and Weight [RC] DAILY Care 11/17/18 01:19 Active Intake and Output [RC] QSHIFT Care 11/17/18 01:21 Active Oxygen Therapy [RC] PRN Care 11/17/18 01:19 Active VTE/DVT Education [RC] Per Unit Routine Care 11/17/18 01:19 Active Vital Signs [RC] Q4H Care 11/17/18 01:19 Active Consistent Carbohydrate Diet [DIET] Diet 11/17/18 Breakfast Ordered HEMOGLOBIN/HEMATOCRIT,HH [HEME] Routine Lab 11/17/18 12:00 Ordered Albuterol [Ventolin HFA] Med 11/17/18 01:50 Active 0 gm INH Q6H PRN Heparin Sodium [Heparin Lock Flush 10 Units/ML] Med 11/17/18 04:03 Active 50 unit FLUSH ASDIRECTED PRN Sodium Chloride 0.9% [Normal Saline] 1,000 ml Med 11/16/18 23:45 Active IV ASDIRECTED Sodium Chloride 0.9% [Normal Saline] 250 ml Med 11/16/18 23:45 Active IV ASDIRECTED Sodium Chloride 0.9% [Saline Flush] Med 11/16/18 23:58 Active 10 ml FLUSH ASDIRECTED PRN Peripheral IV Insertion Adult [OM.PC] Routine Oth 11/16/18 23:58 Ordered Transfuse Red Blood Cells [COMM] Urgent Oth 11/16/18 23:58 Ordered Resuscitation Status Routine Resus Stat 11/17/18 01:19 Ordered EKG 12 Lead [EK] Routine Ther 11/17/18 00:07 Ordered Medication Orders Albuterol (Ventolin Hfa) 0 gm INH Q6H PRN PRN Reason: Shortness of Breath Last Admin: 11/17/18 04:07 Dose: 1 inhaler Heparin Sodium (Porcine) (Heparin Lock Flush 10 Units/Ml) 50 unit FLUSH ASDIRECTED PRN PRN Reason: Keep Vein Open Sodium Chloride (Normal Saline) 1,000 mls @ 400 mls/hr IV ASDIRECTED MEGHANA Stop: 11/18/18 02:14 Last Admin: 11/17/18 02:33 Dose: 400 mls/hr Sodium Chloride (Normal Saline) 250 mls @ 100 mls/hr IV ASDIRECTED MEGHANA Last Admin: 11/17/18 05:19 Dose: 100 mls/hr Admin: 11/17/18 03:10 Dose: 100 mls/hr Sodium Chloride (Saline Flush) 10 ml FLUSH ASDIRECTED PRN PRN Reason: Keep Vein Open Assessment/Plan Comment:: 1. Admit to observation for transfusion, 2 units of PRBCs. 2. Repeat hemoglobin after transfusion. If improved and symptoms have resolved then would discharge home later Weds. 3. Full Code. 4. Continue home medications. - Mortality Measure Prognosis:: Good
== END 2018-11-17 14:05 | disposition home or self-care (01) ==
LOC: FB.ED 23:10 → FB.MS 11-17 01:16
PROVIDERS: ADMIT Family Medicine; ATTEND Family Medicine
DX: I12.0 Hypertensive chronic kidney disease with stage 5 chronic kidney disease or end stage renal disease (principal); E11.22 Type 2 diabetes mellitus with diabetic chronic kidney disease; N18.6 End stage renal disease; D63.1 Anemia in chronic kidney disease; E11.319 Type 2 diabetes mellitus with unspecified diabetic retinopathy without macular edema; J44.9 Chronic obstructive pulmonary disease, unspecified; E66.9 Obesity, unspecified; Z68.37 Body mass index [BMI] 37.0-37.9, adult; Z99.2 Dependence on renal dialysis; Z89.511 Acquired absence of right leg below knee; Z79.899 Other long term (current) drug therapy; Z88.0 Allergy status to penicillin; Z88.2 Allergy status to sulfonamides; Z79.4 Long term (current) use of insulin
CPT/HCPCS: 36410; 36415; 36430; 80053; 82962; 84484; 85014; 85018; 85025; 86850; 86900; 86901; 86920; 86922; 93005; 99285; A9270; G0378; J1642; J7030; J7050; P9016; 93010

== ENCOUNTER 2018-12-21 06:57 | Day surgery (SDC) | payer MEDICARE, MEDICAID ==
[~2018-12-21 06:57] MED LIST: Lactated Ringers 1,000 ML IV SCH; Sodium Chloride 0.9% 10 ML Syringe FLUSH PRN
[2018-12-21] MEDS ORDERED: Propofol 200 MG/20 ML SDV IV ONE (06:58)
[2018-12-21] MEDS ORDERED: Lidocaine 2% 5 ML SDV INJECT ONE (06:58)
--- NOTE | 2018-12-21 08:22 | PCM.OPNOTE ---
- General Post-Op/Procedure Note Date of Surgery/Procedure: 12/21/18 Operative Procedure(s): egd Findings: nl exam Pre Op Diagnosis: hx of anemia. melena Post-Op Diagnosis: nl egd Anesthesia Technique: MAC Primary Surgeon: Williams Merlos Anesthesia Provider: Ulysses Oscar Pathology: none Complications: None Condition: Good Free Text/Narrative:: see dictation
[2018-12-21 09:11] VITALS: BP 100/64; PULSE 78
--- NOTE | 2018-12-21 14:25 | OR ---
DATE OF OPERATION: 12/21/2018 SURGEON: Williams Merlos MD PROCEDURE PERFORMED: EGD. PREOPERATIVE DIAGNOSIS: History of melena and anemia. POSTOPERATIVE DIAGNOSIS: Normal exam. INDICATIONS FOR PROCEDURE: This is a 53-year-old white male with history of chronic renal failure, chronic anemia. Past couple of years, apparently he has been having some persistent anemia and melena. EGD was requested to evaluate for possible upper GI bleeding source. DESCRIPTION OF OPERATION: After an excellent IV sedation was administered, bite block was inserted. Flexible endoscope was passed down the esophagus. The scope was then passed through the pylorus, second portion of the duodenum and slowly withdrawn. The following findings were noted: Duodenum was unremarkable. Stomach is unremarkable. Esophagus was unremarkable. Stomach was deflated, scope was removed. Patient tolerated the procedure well. /[id number] /MODL
== END 2018-12-21 09:01 | disposition home or self-care (01) ==
LOC: FB.SDS 06:57
PROVIDERS: ATTEND Surgery
DX: D64.9 Anemia, unspecified (principal); K92.1 Melena; I12.9 Hypertensive chronic kidney disease with stage 1 through stage 4 chronic kidney disease, or unspecified chronic kidney disease; E11.22 Type 2 diabetes mellitus with diabetic chronic kidney disease; N18.9 Chronic kidney disease, unspecified; E55.9 Vitamin D deficiency, unspecified; J44.9 Chronic obstructive pulmonary disease, unspecified; F32.89 Other specified depressive episodes; E66.01 Morbid (severe) obesity due to excess calories; Z68.39 Body mass index [BMI] 39.0-39.9, adult; Z79.899 Other long term (current) drug therapy; Z79.4 Long term (current) use of insulin; Z79.51 Long term (current) use of inhaled steroids; Z79.82 Long term (current) use of aspirin; Z88.1 Allergy status to other antibiotic agents; Z88.2 Allergy status to sulfonamides
CPT/HCPCS: 00731; 43235; 82962; J2001; J2704; J7120

== ENCOUNTER 2018-12-23 12:36 | Emergency (ER) | payer MEDICARE, MEDICAID ==
[2018-12-23] MEDS ORDERED: Sodium Chloride 0.9% 250 ML IV SCH (13:30)
--- NOTE | 2018-12-23 13:45 | EDM.PDOC ---
ED HPI GENERAL MEDICAL PROBLEM - General Chief Complaint: General Time Seen by Provider: 12/23/18 12:50 Source of Information: Reports: Patient, EMS History Limitations: Reports: No Limitations - History of Present Illness INITIAL COMMENTS - FREE TEXT/NARRATIVE: 53 y.o.w.m with ESRD. IDDM. above knee amputation right leg, decubitus ulcers right buttock, came to the ED by EMS due to weakness and not feeling well with cough and feeling warm. No N/V/D. Pt underwent an upper and lower endoscopy, which was found to be neg. Pt had a blood transfusion 2 weeks ago because of anemia. Pt does not remember if he was given Erythropoietin. Pt is living by himself. He has a dog. No home health was set up. Vitals BP 115/57 pulse 79, RR 18 Pulse ox 79% on RA temp 36.8 Onset Date: 12/15/18 Onset Time: 08:00 Duration: Week(s):, Getting Worse, Intermittent Location: Reports: Generalized - Related Data Allergies Allergy/AdvReac Type Severity Reaction Status Date / Time amoxicillin [From Augmentin] Allergy Rash Verified 12/21/18 07:48 clavulanic acid Allergy Rash Verified 12/21/18 07:48 [From Augmentin] Sulfa (Sulfonamide Allergy Rash Verified 12/21/18 07:48 Antibiotics) Home Meds: Home Meds Albuterol Sulfate [Proair Hfa] 1 - 2 puff IH Q4H 06/13/16 [History] Budesonide/Formoterol Fumarate [Symbicort 160-4.5 Mcg Inhaler] 2 puff IH BID PRN 06/13/16 [History] Carbidopa/Levodopa [Carbidopa-Levodopa 25-250] 1 each PO BEDTIME PRN 06/13/16 [ History] Cyanocobalamin (Vitamin B-12) [Vitamin B-12] 250 mcg PO DAILY 06/13/16 [History] Ferrous Sulfate 324 mg PO BID 06/13/16 [History] Insulin Degludec 30 units SQ DAILY PRN 11/17/18 [Rx] Ascorbate Calcium [Vitamin C] 500 mg PO DAILY 12/20/18 [History] Calcitriol 0.25 mcg PO DAILY 12/20/18 [History] Cholecalciferol (Vitamin D3) [Vitamin D3] 1,000 unit PO BID 12/20/18 [History] atorvaSTATin [Lipitor] 20 mg PO BEDTIME 12/20/18 [History] Past Medical History HEENT History: Reports: Cataract, Other (See Below) Other HEENT History: DIABETIC RETINOPATHY, BOTH EYES;. DIABETIC OPTIC PAPILLOPATHY, PRESBYOPIA Cardiovascular History: Reports: Hypertension, Other (See Below) Other Cardiovascular History: EDEMA, ANEMIA (HCC) Respiratory History: Reports: Asthma, COPD Other Respiratory History: Takes inhalers prn. Gastrointestinal History: Reports: None, PUD Genitourinary History: Reports: Acute Renal Failure, Chronic Renal Insuffiency Other Genitourinary History: Dialysis patient---[facility]. Presently has a Yepez Central Line in place awaiting maturity of fistula to right wrist area. 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 Musculoskeletal History: Reports: Amputation, Other (See Below) Other Musculoskeletal History: OSTEOMYELITIS, RIGHT LEG Neurological History: Reports: Neuropathy, Diabetic, Other (See Below) Other Neuro History: RESTLESS LEG SYNDROME Psychiatric History: Reports: Anxiety, Depression, Other (See Below) Other Psychiatric History: doing better, no longer on meds for depression Endocrine/Metabolic History: Reports: Diabetes, Type II, Obesity/BMI 30+, Vitamin D Deficiency Other Endocrine/Metabolic History: DIABETIC FOOT INFECTION, DYSMETABOLIC SYNDROME Hematologic History: Reports: Anemia, Blood Transfusion(s), Other (See Below) Other Hematologic History: THROMBOCYTOPENIA Oncologic (Cancer) History: Reports: None Dermatologic History: Reports: Other (See Below) Other Dermatologic History: HX ULCER on left buttock, bottom is tahir patient has put duoderm on and somethimes a cream - Infectious Disease History Infectious Disease History: Reports: Chicken Pox, Influenza, MRSA - Past Surgical History HEENT Surgical History: Reports: None Cardiovascular Surgical History: Reports: None Respiratory Surgical History: Reports: None GI Surgical History: Reports: Colonoscopy Male Surgical History: Reports: Circumcision Endocrine Surgical History: Reports: None Neurological Surgical History: Reports: None Musculoskeletal Surgical History: Reports: Amputation, Other (See Below) Other Musculoskeletal Surgeries/Procedures:: BKA on right lower leg Dermatological Surgical History: Reports: None Social & Family History - Family History Family Medical History: Noncontributory - Caffeine Use Caffeine Use: Reports: Coffee, Soda ED ROS GENERAL - Review of Systems Review Of Systems: See Below Constitutional: Reports: Weakness HEENT: Reports: No Symptoms Respiratory: Reports: Cough Cardiovascular: Reports: No Symptoms Endocrine: Reports: Other (IDDM) GI/Abdominal: Reports: No Symptoms : Reports: No Symptoms Musculoskeletal: Reports: Other (Amputation ubove knee right extremity) Skin: Reports: Wound (decubity ulcers both buttocs) Neurological: Reports: No Symptoms Psychiatric: Reports: No Symptoms Hematologic/Lymphatic: Reports: No Symptoms Immunologic: Reports: No Symptoms ED EXAM, GENERAL - Physical Exam Exam: See Below Exam Limited By: No Limitations General Appearance: Alert, Mild Distress, Moderate Distress, Obese Eye Exam: Bilateral Eye: Normal Inspection Ear Exam: Bilateral Ear: Auricle Normal Nose: Normal Inspection, Normal Mucosa, Nasal Swelling, Nasal Drainage Throat/Mouth: Normal Lips, Normal Voice, No Airway Compromise Head: Atraumatic, Normocephalic Neck: Normal Inspection, Supple, Non-Tender, Full Range of Motion Respiratory/Chest: Decreased Breath Sounds (RLL of lung) Cardiovascular: Normal Peripheral Pulses, Regular Rate, Rhythm, No Edema, No JVD Peripheral Pulses: 1+: Carotid (L) GI/Abdominal: Normal Bowel Sounds, Soft, Non-Tender, No Organomegaly, No Abnormal Bruit, No Mass, Pelvis Stable (Male) Exam: Deferred Rectal (Males) Exam: Deferred Back Exam: Normal Inspection Extremities: Normal Range of Motion, Non-Tender, Other (Above right knee ambutation) Neurological: Alert, Oriented, CN II-XII Intact, Normal Cognition Psychiatric: Normal Affect, Normal Mood Skin Exam: Wound/Incision (decubities both buttocks stage 1-3) Lymphatic: No Adenopathy Course - Vital Signs Text/Narrative:: 53 y.o.w.m with ESRD. IDDM. above knee amputation right leg, decubitus ulcers right buttock, came to the ED by EMS due to weakness and not feeling well with cough and feeling warm. No N/V/D. Pt underwent an upper and lower endoscopy, which was found to be neg. Pt had a blood transfusion 2 weeks ago because of anemia. Pt does not remember if he was given Erythropoietin. Pt is living by himself. He has a dog. No home health was set up. Vitals BP 115/57 pulse 79, RR 18 Pulse ox 79% on RA temp 36.8 Impression: Ill, pale appearing 53 y.o.w.m Imagine: CXR : RLL infiltrate/ pneumonia as per RAD Labs: HGB 6.0 HKT 18.8 WBC 10.4 BUN 13 CR 3.6 GFR 18 Lactic acid 4.9 BCx results are pending Impression: ESRD due to IDDM, on HD x times a week, Decubital ulcers at both buttocks stage 1-3, Anemia, RLL Infiltrate, general weakness Tx: vanco 2 gmsx1 Rocephin, PRBC 2 units, Wound care at buttock. O2 by NC Reexam: Improved 1.45 pm Consultation: Dr. Miller, Hospitalist, Accepted the pt for admission to [facility] inpatient, no tele 2.18 pm Consultation: Pharmacist: 2 gm vancomycin one dose 2.22 pm Consultation: Dr. Miller, Hospitalist: Can not accept the Admission because pt is on HD in AM 2.43 pm: Consultation: Dr. Brandon, Hospitalist, [place]: Accepted th4e pt for transfer/admission and further care Plan: Transfer to [facility], pt agreed Last Recorded V/S: Last Vital Signs Temp 36.1 C 12/23/18 16:30 Pulse 78 12/23/18 16:30 Resp 16 12/23/18 16:30 BP 119/52 L 12/23/18 16:30 Pulse Ox 97 12/23/18 16:30 - Orders/Labs/Meds Labs: Laboratory Tests 12/23/18 12/23/18 12/23/18 Range/Units 13:10 13:10 13:10 WBC 10.4 (4.5-12.0) X10-3/uL RBC 2.24 L (4.30-5.75) x10(6)uL Hgb 6.0 L* (13.5-17.8) g/dL Hct 18.4 L* (30.0-51.3) % MCV 82.1 (80-96) fL MCH 26.9 L (27.7-33.6) pg MCHC 32.7 (32.2-35.4) g/dL RDW 17.6 H (11.5-15.5) % Plt Count 335 (125-369) X10(3)uL MPV 6.5 L (7.4-10.4) fL Neut % (Auto) 79.0 (46-82) % Lymph % (Auto) 12.4 L (13-37) % [place] % (Auto) 7.7 (4-12) % Eos % (Auto) 1 (1.0-5.0) % Baso % (Auto) 0 (0-2) % Neut # (Auto) 8.2 (1.6-8.3) # Lymph # (Auto) 1.3 (0.6-5.0) # [place] # (Auto) 0.8 (0.0-1.3) # Eos # (Auto) 0.1 (0.0-0.8) # Baso # (Auto) 0.0 (0.0-0.2) # PT 9.7 (8.7-11.1) INR 1.00 (0.89-1.13) ABG pH (7.35-7.45) ABG pCO2 (35-45) mmHg ABG pO2 (83-108) mmHg ABG HCO3 (22-26) mmol/L ABG O2 Saturation (96-97) % ABG Base Excess (-2-2) Blake Test O2 Delivery Device Sodium 140 (135-145) mmol/L Potassium 3.5 (3.5-5.3) mmol/L Chloride 100 (100-110) mmol/L Carbon Dioxide 31 (21-32) mmol/L BUN 13 (7-18) mg/dL Creatinine 3.6 H* (0.70-1.30) mg/dL Est Cr Clr Drug Dosing TNP Estimated GFR (MDRD) 18 L (>60) BUN/Creatinine Ratio 3.6 L (9-20) Glucose 174 H (80-116) mg/dL Lactic Acid (0.4-2.2) mmol/L Calcium 8.1 L (8.6-10.2) mg/dL Magnesium 1.7 L (1.8-2.5) mg/dL Erythropoietin (2.6-18.5) mIU/mL Troponin I (<0.017-0.056) ng/mL Blood Type Gel Antibody Screen Crossmatch 12/23/18 12/23/18 12/23/18 Range/Units 13:10 13:10 13:10 WBC (4.5-12.0) X10-3/uL RBC (4.30-5.75) x10(6)uL Hgb (13.5-17.8) g/dL Hct (30.0-51.3) % MCV (80-96) fL MCH (27.7-33.6) pg MCHC (32.2-35.4) g/dL RDW (11.5-15.5) % Plt Count (125-369) X10(3)uL MPV (7.4-10.4) fL Neut % (Auto) (46-82) % Lymph % (Auto) (13-37) % [place] % (Auto) (4-12) % Eos % (Auto) (1.0-5.0) % Baso % (Auto) (0-2) % Neut # (Auto) (1.6-8.3) # Lymph # (Auto) (0.6-5.0) # [place] # (Auto) (0.0-1.3) # Eos # (Auto) (0.0-0.8) # Baso # (Auto) (0.0-0.2) # PT (8.7-11.1) INR (0.89-1.13) ABG pH (7.35-7.45) ABG pCO2 (35-45) mmHg ABG pO2 (83-108) mmHg ABG HCO3 (22-26) mmol/L ABG O2 Saturation (96-97) % ABG Base Excess (-2-2) Blake Test O2 Delivery Device Sodium (135-145) mmol/L Potassium (3.5-5.3) mmol/L Chloride (100-110) mmol/L Carbon Dioxide (21-32) mmol/L BUN (7-18) mg/dL Creatinine (0.70-1.30) mg/dL Est Cr Clr Drug Dosing Estimated GFR (MDRD) (>60) BUN/Creatinine Ratio (9-20) Glucose (80-116) mg/dL Lactic Acid 4.9 H (0.4-2.2) mmol/L Calcium (8.6-10.2) mg/dL Magnesium (1.8-2.5) mg/dL Erythropoietin (2.6-18.5) mIU/mL Troponin I 0.028 (<0.017-0.056) ng/mL Blood Type A NEGATIVE Gel Antibody Screen Negative Crossmatch See Detail 12/23/18 12/23/18 Range/Units 13:10 14:25 WBC (4.5-12.0) X10-3/uL RBC (4.30-5.75) x10(6)uL Hgb (13.5-17.8) g/dL Hct (30.0-51.3) % MCV (80-96) fL MCH (27.7-33.6) pg MCHC (32.2-35.4) g/dL RDW (11.5-15.5) % Plt Count (125-369) X10(3)uL MPV (7.4-10.4) fL Neut % (Auto) (46-82) % Lymph % (Auto) (13-37) % [place] % (Auto) (4-12) % Eos % (Auto) (1.0-5.0) % Baso % (Auto) (0-2) % Neut # (Auto) (1.6-8.3) # Lymph # (Auto) (0.6-5.0) # [place] # (Auto) (0.0-1.3) # Eos # (Auto) (0.0-0.8) # Baso # (Auto) (0.0-0.2) # PT (8.7-11.1) INR (0.89-1.13) ABG pH 7.63 H* (7.35-7.45) ABG pCO2 27 L (35-45) mmHg ABG pO2 120 H (83-108) mmHg ABG HCO3 29 H (22-26) mmol/L ABG O2 Saturation 99 H (96-97) % ABG Base Excess 6.7 H (-2-2) Blake Test Passed O2 Delivery Device Nasal cannula Sodium (135-145) mmol/L Potassium (3.5-5.3) mmol/L Chloride (100-110) mmol/L Carbon Dioxide (21-32) mmol/L BUN (7-18) mg/dL Creatinine (0.70-1.30) mg/dL Est Cr Clr Drug Dosing Estimated GFR (MDRD) (>60) BUN/Creatinine Ratio (9-20) Glucose (80-116) mg/dL Lactic Acid (0.4-2.2) mmol/L Calcium (8.6-10.2) mg/dL Magnesium (1.8-2.5) mg/dL Erythropoietin 242.0 H (2.6-18.5) mIU/mL Troponin I (<0.017-0.056) ng/mL Blood Type Gel Antibody Screen Crossmatch Meds: Medications Discontinued Medications Generic Name Dose Route Start Last Admin Trade Name Freq PRN Reason Stop Dose Admin Ceftriaxone Sodium 1 gm 12/23/18 15:30 12/23/18 15:40 Rocephin IV 12/23/18 15:31 1 gm ONETIME ONE Administration Heparin Sodium (Porcine) 1,000 units 12/23/18 14:30 Heparin Lock Flush 100 Units/Ml FLUSH ASDIRECTED PRN Keep Vein Open Sodium Chloride 250 mls @ 100 mls/hr 12/23/18 13:30 12/23/18 15:42 Normal Saline IV 100 mls/hr ASDIRECTED MEGHANA Administration Vancomycin HCl 2 gm/ Sodium 500 mls @ 250 mls/hr 12/23/18 14:34 12/23/18 15: 26 Chloride IV 12/23/18 16:15 250 mls/hr ONETIME STA Administration Departure - Departure Time of Disposition: 20:00 Disposition: DC/Tfer to Acute Hospital 02 Condition: Fair Clinical Impression: Cholecystitis with cholangitis - Discharge Information Referrals: Bret Mccoy MD [Primary Care Provider] - Forms: ED Department Discharge
[2018-12-23] MEDS ORDERED: cefTRIAXone 1 GM in Sodium Chloride 0.9% 50 ML IV STA (13:49)
--- NOTE | 2018-12-23 13:59 | CR ---
INDICATION: Short of breath. CHEST: An AP upright portable view of the chest, 12/23/18, was compared with and 09/14/08. The heart appeared normal in size. There is an appearance suggesting heavy markings at the right lung base, which may represent minimal pneumonia. A double channel central line is noted from the right subclavian with its tip above the right atrium in good position. No gross consolidating pneumonia or effusion was seen. IMPRESSION: Findings suspicious for minimal patchy pneumonia at the right lung base. Report was called to Dr. Alaniz at 1338 hours on 12/23/18. [facility]
[2018-12-23] MEDS ORDERED: Vancomycin 2 GM in Sodium Chloride 0.9% 500 ML IV STA (14:34)
[2018-12-23] MEDS ORDERED: cefTRIAXone 1 GM Vial IV ONE (15:30)
[2018-12-24 00:32] VITALS: BP 119/52; PULSE 78
== END 2018-12-23 16:45 ==
LOC: FB.ED 12:36
DX: K83.09 Other cholangitis (principal); K81.9 Cholecystitis, unspecified; I12.0 Hypertensive chronic kidney disease with stage 5 chronic kidney disease or end stage renal disease; E11.22 Type 2 diabetes mellitus with diabetic chronic kidney disease; N18.6 End stage renal disease; D63.1 Anemia in chronic kidney disease; J44.9 Chronic obstructive pulmonary disease, unspecified; F41.9 Anxiety disorder, unspecified; F32.9 Major depressive disorder, single episode, unspecified; Z99.2 Dependence on renal dialysis; Z89.511 Acquired absence of right leg below knee; Z88.1 Allergy status to other antibiotic agents; Z88.2 Allergy status to sulfonamides; Z79.899 Other long term (current) drug therapy; Z79.4 Long term (current) use of insulin
CPT/HCPCS: 36430; 36600; 71045; 80048; 82668; 82803; 83605; 83735; 84484; 85025; 85610; 86850; 86900; 86901; 86920; 86922; 87040; 87077; 87186; 93005; 96365; 96375; 99285; J0696; J3370; J7040; J7050; P9016; 93010